=== PATIENT | female | born 1975 | race Caucasian/White ===

== ENCOUNTER → 2021-12-09 | Day surgery (SDC) | payer OTHER ==
[~2021-12-09] VITALS: Ht 162.6 cm; Wt 86.2 kg
[~2021-12-09] MED LIST: ACETAMINOPHEN325 MG PO; ARTHRITIS PAIN150 GM TOP; ASPIRIN325 MG PO; DULOXETINE HCL60 MG PO; LASIX40 MG PO; NEXIUM20 MG PO; PERCOCET 5-3251 EACH PO; PREDNISONE5 MG PO; PROMETHEGA12.5 MG/SU PR; ZOFRAN
[2021-12-09 11:37] LABS: HCT 32.5 % (37.0-47.0); HGB 11.2 g/dl (12.5-16.0); MCH 33.1 pg (25.0-31.0); MCHC 34.5 g/dL (32.0-36.0); MCV 96.2 fL (78.0-100.0); MPV 8.8 fL (6.0-9.5); RBC 3.38 M/uL (4.20-5.40); RDW 12.4 % (11.5-14.0); WBC 2.3 K/uL (4.0-10.5)
[2021-12-09 11:59] LABS: ALBUMIN 3.6 g/dL (3.4-5.0); BILIRUBIN - TOTAL 0.4 mg/dL (0.2-1.0); BUN/CREAT RATIO (CALC) 10.3 RATIO; CREATININE 0.68 mg/dL (0.51-0.95); GLOBULIN (CALCULATION) 3.3 g/dL; POTASSIUM 3.9 mmol/L (3.5-5.1); TOTAL PROTEIN 6.9 g/dL (6.4-8.2)
== END | disposition home or self-care (01) ==
LOC: FAS 09:12
PROVIDERS: Orthopaedic Surgery
DX: S52.572A Other intraarticular fracture of lower end of left radius, initial encounter for closed fracture (principal); R94.31 Abnormal electrocardiogram [ECG] [EKG]; Z88.6 Allergy status to analgesic agent; Z79.82 Long term (current) use of aspirin; Z88.5 Allergy status to narcotic agent; W19.XXXA Unspecified fall, initial encounter; Z87.891 Personal history of nicotine dependence
CPT/HCPCS: 36415; 73100; 76000; 80053; 93005; C1713; C1769; J0690; J1100; J1170; J1642; J2250; J2795; J3010; J7120